=== PATIENT | male | born 1945 | race Caucasian/White ===

== ENCOUNTER 2017-08-12 12:10 | Emergency (ER) | payer MEDICARE, BC ==
--- NOTE | 2017-08-12 12:34 | EDM.PDOC ---
ED HPI GENERAL MEDICAL PROBLEM - General Chief Complaint: General Stated Complaint: fell and hit head Time Seen by Provider: 08/12/17 12:15 Source of Information: Reports: Patient History Limitations: Reports: No Limitations - History of Present Illness INITIAL COMMENTS - FREE TEXT/NARRATIVE: Pt was walking this morning and slipped on the ice and fell backwords and hit his head. Does have a hematoma on posterior scalp that is tender and states that "everything hurts" Doesn't remember falling. Happened about 0930 this AM. No loss of bowel or bladder. Very talkative while here. Does state that he will get dizzy when he turns over on the bed. Was nauseated initially but that is better. Onset: Sudden Onset Time: 09:30 Location: Reports: Head Quality: Reports: Dull Head Pain Score (Numeric/FACES): 4 - Related Data Allergies Allergy/AdvReac Type Severity Reaction Status Date / Time Penicillins Allergy Change Verified 08/12/17 12:16 Mental Status Home Meds: Home Meds Cholecalciferol (Vitamin D3) [Vitamin D] 2,000 units PO DAILY 10/10/14 [History] Colestipol [Colestipol HCl] 1 gm PO BID 10/10/14 [History] Gabapentin [Gabapentin] 600 mg PO TID 10/10/14 [History] L Acidophil/B Lactis/B Longum [Florajen3] 460 mg PO DAILY 10/10/14 [History] Methylcellulose [Citrucel] 500 mg PO QID 10/10/14 [History] Warfarin [Coumadin] 2.5 mg PO SUMOTUWETHSA 10/10/14 [History] Warfarin [Coumadin] 5 mg PO FR 10/10/14 [History] Omeprazole Magnesium [Prilosec Otc] 30 mg PO DAILY 06/05/16 [History] Vortioxetine Hydrobromide [Trintellix] 5 mg PO DAILY 06/05/16 [History] Cyclobenzaprine [Flexeril] 10 mg PO BEDTIME 07/19/16 [History] Past Medical History HEENT History: Reports: Hard of Hearing, Impaired Vision Respiratory History: Reports: PE Gastrointestinal History: Reports: GERD Other Genitourinary History: prostate removed Musculoskeletal History: Reports: Fibromyalgia Psychiatric History: Reports: Anxiety, Depression Oncologic (Cancer) History: Reports: Prostate - Past Surgical History HEENT Surgical History: Reports: Cataract Surgery, Tonsillectomy GI Surgical History: Reports: Appendectomy, Cholecystectomy Male Surgical History: Reports: Prostatectomy Musculoskeletal Surgical History: Reports: Other (See Below) Other Musculoskeletal Surgeries/Procedures:: PLATED TO IS JOINT IN HIP AND MARCOS TO LUMBAR SPINE Social & Family History - Family History Family Medical History: Noncontributory - Tobacco Use Smoking Status *Q: Never Smoker Second Hand Smoke Exposure: No - Alcohol Use Days Per Week of Alcohol Use: 0 - Recreational Drug Use Recreational Drug Use: No ED ROS GENERAL - Review of Systems Review Of Systems: See Below Constitutional: Reports: No Symptoms HEENT: Denies: Ear Discharge, Ear Pain, Vision Change Respiratory: Denies: Shortness of Breath Cardiovascular: Reports: No Symptoms GI/Abdominal: Denies: Abdominal Pain Musculoskeletal: Reports: Back Pain Skin: Reports: No Symptoms Neurological: Reports: Dizziness, Headache. Denies: Numbness ED EXAM, GENERAL - Physical Exam Exam: See Below Exam Limited By: No Limitations General Appearance: Alert, WD/WN, Mild Distress Ears: Normal External Exam, Normal Canal, Normal TMs Throat/Mouth: Normal Inspection, Normal Oropharynx, Normal Voice Head: Normocephalic, Other (small hematoma to the posterior scalp. Not open or draining.) Neck: Normal Inspection, Supple, Non-Tender Respiratory/Chest: No Respiratory Distress, Lungs Clear, Normal Breath Sounds Cardiovascular: Regular Rate, Rhythm GI/Abdominal: Normal Bowel Sounds, Soft, Non-Tender Back Exam: Normal Inspection Extremities: Normal Inspection, No Pedal Edema, Normal Capillary Refill Neurological: Alert, Oriented Skin Exam: Warm, Dry, Intact, Normal Color Course - Vital Signs Last Recorded V/S: Last Vital Signs Temp 97.2 F 08/12/17 12:26 Pulse 76 08/12/17 12:26 Resp 18 08/12/17 12:26 BP 142/95 H 08/12/17 13:04 Pulse Ox 96 08/12/17 12:26 - Orders/Labs/Meds Orders: Active Orders 24 hr Category Date Time Status Head wo Cont [CT] Stat Exams 08/12/17 12:28 Taken Meds: Medications Discontinued Medications Generic Name Dose Route Start Last Admin Trade Name Freq PRN Reason Stop Dose Admin Lisinopril 10 mg 08/12/17 13:10 08/12/17 13:22 Prinivil PO 08/12/17 13:11 10 mg ONETIME ONE Administration Tramadol HCl 50 mg 08/12/17 13:17 08/12/17 13:22 Ultram PO 08/12/17 13:18 50 mg ONETIME ONE Administration - Re-Assessments/Exams Free Text/Narrative Re-Assessment/Exam: 08/12/17 13:19 in to discuss the CT report that is negative for any bleeds. BP is still high. Will treat. Tramadol for headache ordered. Discussed getting up and moving around to see if the dizziness gets better. Free Text/Narrative Re-Assessment/Exam: 08/12/17 14:57 Feels better with headache less, Hematoma is smaller. Has been up and moving some with less dizziness. Tramadol 50 mg 1 every 6 hours as needed for pain. REst the rest of the day. Follow up with Dr. Stephens as needed. Departure - Departure Time of Disposition: 14:00 Disposition: Home, Self-Care 01 Clinical Impression: Anticoagulant long-term use Fall due to ice or snow Qualifiers: Encounter type: initial encounter Qualified Code(s): W00.9XXA - Unspecified fall due to ice and snow, initial encounter CHI (closed head injury) Qualifiers: Encounter type: initial encounter Qualified Code(s): S09.90XA - Unspecified injury of head, initial encounter - Discharge Information Referrals: Morris Stephens MD [Primary Care Provider] - Forms: ED Department Discharge - Problem List & Annotations (1) Anticoagulant long-term use SNOMED Code(s): 473927620 Code(s): Z79.01 - CLOTH COLORS EXAMINER (CURRENT) USE OF ANTICOAGULANTS Status: Chronic Priority: Medium (2) CHI (closed head injury) SNOMED Code(s): 891040278211 Code(s): S09.90XA - UNSPECIFIED INJURY OF HEAD, INITIAL ENCOUNTER Status: Acute Priority: High Qualifiers: Encounter type: initial encounter Qualified Code(s): S09.90XA - Unspecified injury of head, initial encounter (3) Fall due to ice or snow SNOMED Code(s): 742121747 Code(s): W00.9XXA - UNSPECIFIED FALL DUE TO ICE AND SNOW, INITIAL ENCOUNTER Status: Acute Priority: High Qualifiers: Encounter type: initial encounter Qualified Code(s): W00.9XXA - Unspecified fall due to ice and snow, initial encounter - Problem List Review Problem List Initiated/Reviewed/Updated: Yes - My Orders Last 24 Hours: My Active Orders 08/12/17 12:28 Head wo Cont [CT] Stat - Assessment/Plan Last 24 Hours: My Active Orders 08/12/17 12:28 Head wo Cont [CT] Stat
[2017-08-12 13:06] VITALS: BP 142/95
[2017-08-12] MEDS ORDERED: Lisinopril 10 MG Tab PO ONE (13:10)
[2017-08-12] MEDS ORDERED: traMADol 50 MG Tab PO ONE (13:17)
== END 2017-08-12 15:17 | disposition home or self-care (01) ==
LOC: CC.ED 12:10
DX: S09.90XA Unspecified injury of head, initial encounter (principal); W00.0XXA Fall on same level due to ice and snow, initial encounter; Z88.1 Allergy status to other antibiotic agents; Z79.899 Other long term (current) drug therapy; Z79.01 Long term (current) use of anticoagulants
CPT/HCPCS: 70450; 99284; A9270

== ENCOUNTER 2017-08-31 04:10 | Emergency (ER) | payer MEDICARE, BC ==
[2017-08-31 04:50] LABS: CHLORIDE,CL 107 mEq/L (98-106); SODIUM,NA 143 mEq/L (136-145)
--- NOTE | 2017-08-31 04:54 | EDM.PDOC ---
ED HPI GENERAL MEDICAL PROBLEM - General Chief Complaint: General Stated Complaint: dizzy Time Seen by Provider: 08/31/17 04:34 Source of Information: Reports: Patient History Limitations: Reports: No Limitations - History of Present Illness INITIAL COMMENTS - FREE TEXT/NARRATIVE: This patient is a 71 year old male that presents to the ER. Patient is accompanied by his . He is anxious. Patient reports that a few weeks ago he fell and hit his head. Patient reports that he was examined since a couple of times. Patient reports that since falling a few weeks ago, he has been diagnosed with HTN and Vertigo. He reports having dizziness since his fall a few weeks ago. Patient reports tonight that at about 10pm he was laying in bed and had a frontal headache across the forehead. He reports he had pain in his left ear. He describes the pain in his left ear as shapr and pulsating. He reports that he also had worse dizziness worse tonight especially with sitting up or position changes. But, felt like his dizziness was still there even with laying back, which normally it resolves in that position. The patient reports that since then he also feels generally weak, but more so on the left side of his body. He reports that he had abdominal pain and tenderness all over yesterday, but this has improved. He reports he also has some nausea. The denies v, d, f, congestion, cough, sinus pain, sinus pressure, cp, soa, urinary/ bowel changes, rashes. Patient is alert and oriented, stroke score is 0. GCS is 15. Patient was able to ambulate in the ER to the bathroom without difficulty or assistance. Onset Date: 08/30/17 Onset Time: 22:00 Location: Reports: Head Quality: Reports: Other (swishing) Severity: Moderate Improves with: Reports: Rest Worsens with: Reports: Movement Associated Symptoms: Reports: Headaches, Nausea/Vomiting, Weakness. Denies: Confusion, Chest Pain, Cough, cough w sputum, Diaphoresis, Fever/Chills, Loss of Appetite, Malaise, Rash, Seizure, Shortness of Breath, Syncope - Related Data Allergies Allergy/AdvReac Type Severity Reaction Status Date / Time Penicillins Allergy Change Verified 08/31/17 04:27 Mental Status Home Meds: Home Meds Cholecalciferol (Vitamin D3) [Vitamin D] 2,000 units PO DAILY 10/10/14 [History] Colestipol [Colestipol HCl] 1 gm PO BID 10/10/14 [History] Gabapentin [Gabapentin] 600 mg PO TID 10/10/14 [History] L Acidophil/B Lactis/B Longum [Florajen3] 460 mg PO DAILY 10/10/14 [History] Methylcellulose [Citrucel] 500 mg PO QID 10/10/14 [History] Warfarin [Coumadin] 2.5 mg PO SUMOTUWETHSA 10/10/14 [History] Warfarin [Coumadin] 5 mg PO FR 10/10/14 [History] Omeprazole Magnesium [Prilosec Otc] 30 mg PO DAILY 06/05/16 [History] Vortioxetine Hydrobromide [Trintellix] 5 mg PO DAILY 06/05/16 [History] Cyclobenzaprine [Flexeril] 10 mg PO BEDTIME 07/19/16 [History] Metoprolol Succinate [Toprol Xl] 50 mg PO DAILY 08/31/17 [History] Past Medical History HEENT History: Reports: Hard of Hearing, Impaired Vision Respiratory History: Reports: PE Gastrointestinal History: Reports: GERD Other Genitourinary History: prostate removed Musculoskeletal History: Reports: Fibromyalgia Psychiatric History: Reports: Anxiety, Depression Oncologic (Cancer) History: Reports: Prostate - Past Surgical History HEENT Surgical History: Reports: Cataract Surgery, Tonsillectomy GI Surgical History: Reports: Appendectomy, Cholecystectomy Male Surgical History: Reports: Prostatectomy Musculoskeletal Surgical History: Reports: Other (See Below) Other Musculoskeletal Surgeries/Procedures:: PLATED TO IS JOINT IN HIP AND MARCOS TO LUMBAR SPINE Social & Family History - Family History Family Medical History: Noncontributory - Tobacco Use Smoking Status *Q: Never Smoker Second Hand Smoke Exposure: No - Alcohol Use Days Per Week of Alcohol Use: 0 - Recreational Drug Use Recreational Drug Use: No ED ROS GENERAL - Review of Systems Review Of Systems: See Below Constitutional: Reports: Weakness HEENT: Reports: Ear Pain (left with [place]) Respiratory: Reports: No Symptoms Cardiovascular: Reports: No Symptoms Endocrine: Reports: No Symptoms GI/Abdominal: Reports: Abdominal Pain, Nausea. Denies: Diarrhea, Vomiting : Reports: No Symptoms Musculoskeletal: Reports: No Symptoms Skin: Reports: No Symptoms Neurological: Reports: Dizziness, Headache, Weakness (generalized, left more than right.). Denies: Syncope, Tremors, Trouble Speaking, Difficulty Walking, Change in Speech Psychiatric: Reports: No Symptoms Hematologic/Lymphatic: Reports: No Symptoms Immunologic: Reports: No Symptoms ED EXAM, GENERAL - Physical Exam Exam: See Below Exam Limited By: No Limitations General Appearance: Alert, WD/WN, No Apparent Distress Eye Exam: Bilateral Eye: EOMI, Normal Inspection, PERRL Ears: Normal External Exam, Normal Canal, Hearing Grossly Normal, Normal TMs, Other (right hearing aid removed for exam. ) Ear Exam: Bilateral Ear: Auricle Normal, Canal Normal, TM normal Nose: Normal Inspection, Normal Mucosa, No Blood Throat/Mouth: Normal Inspection, Normal Lips, Normal Teeth, Normal Gums, Normal Oropharynx, Normal Voice, No Airway Compromise Head: Atraumatic, Normocephalic Neck: Normal Inspection, Supple, Non-Tender, Full Range of Motion Respiratory/Chest: No Respiratory Distress, Lungs Clear, Normal Breath Sounds, No Accessory Muscle Use, Chest Non-Tender Cardiovascular: Normal Peripheral Pulses, Regular Rate, Rhythm, No Edema, No Gallop, No JVD, No Murmur, No Rub Peripheral Pulses: 2+: Carotid (L), Carotid (R), Radial (L), Radial (R), Posterior Tibial (L), Posterior Tibial (R), Dorsalis Pedis (L), Dorsalis Pedis ( R) GI/Abdominal: Normal Bowel Sounds, Soft, Non-Tender, No Organomegaly, No Distention, No Abnormal Bruit, No Mass, Pelvis Stable Back Exam: Normal Inspection, Full Range of Motion. No: CVA Tenderness (L), CVA Tenderness (R) Extremities: Normal Inspection, Normal Range of Motion, Non-Tender, No Pedal Edema, Normal Capillary Refill Neurological: Alert, Oriented, CN II-XII Intact, Normal Cognition, Normal Gait, No Motor/Sensory Deficits. No: Inattentive, Confused, Disoriented, Slow to Respond, Unresponsive, Memory Loss Remote Events, Memory Loss Recent Events, Abnormal Gait, Sensory/Motor Deficit Psychiatric: Normal Mood, Anxious Skin Exam: Warm, Dry, Intact, Normal Color, No Rash Lymphatic: No Adenopathy EKG INTERPRETATION EKG Date: 08/31/17 Time: 04:56 Rhythm: NSR Rate (Beats/Min): 64 [place]: Normal P-Wave: Present QRS: Normal ST-T: Normal QT: Normal Comparison: NA - No Prior EKG Course - Vital Signs Last Recorded V/S: Last Vital Signs Temp 98.5 F 08/31/17 04:40 Pulse 68 08/31/17 05:36 Resp 18 08/31/17 04:40 BP 124/86 08/31/17 05:36 Pulse Ox 97 08/31/17 04:40 Orthostatic Blood Pressure [ 154/87 Standing] Orthostatic Blood Pressure [ 121/71 Sitting] Orthostatic Blood Pressure [ 128/83 Supine] - Orders/Labs/Meds Orders: Active Orders 24 hr Category Date Time Status EKG Documentation Completion [RC] STAT Care 08/31/17 04:43 Inactive Orthostatic Vital Signs [RC] ASDIRECTED Care 08/31/17 05:03 Active Chest 1V Frontal [CR] Stat Exams 08/31/17 04:42 Taken Head wo Cont [CT] Stat Exams 08/31/17 04:36 Taken Labs: Laboratory Tests 08/31/17 08/31/17 08/31/17 Range/Units 04:30 04:30 04:30 WBC 7.2 (5.0-10.0) 10^3/uL RBC 5.01 (4.50-6.00) 10^6/uL Hgb 15.7 (14.0-18.0) g/dL Hct 47.0 (40.0-54.0) % MCV 93.8 (82.0-94.0) fL MCH 31.3 (27.0-32.0) pg MCHC 33.4 (33.0-38.0) g/dL RDW Coeff of Lucia 12.8 (11.0-15.0) % Plt Count 280 (150-400) 10^3/uL Neut % (Auto) 64.4 (35-85) % Lymph % (Auto) 18.6 (10-55) % [place] % (Auto) 11.9 (0-16) % Eos % (Auto) 4.3 (0-5) % Baso % (Auto) 0.8 (0-3) % Neut # (Auto) 4.63 (1.80-7.00) 10^3/uL Lymph # (Auto) 1.34 (1.00-4.80) 10^3/uL [place] # (Auto) 0.86 H (0.00-0.80) 10^3/uL Eos # (Auto) 0.31 (0.00-0.45) 10^3/uL Baso # (Auto) 0.06 10^3/uL PT 27.5 H (9.7-12.3) SEC INR 2.48 H (0.92-1.18) APTT 37.7 H (24.5-30.9) SEC Sodium 143 (136-145) mEq/L Potassium 3.6 (3.5-5.0) mEq/L Chloride 107 H (98-106) mEq/L Carbon Dioxide 28 (21-32) mmol/L BUN 13 (7-18) mg/dL Creatinine 0.8 (0.7-1.3) mg/dL Est Cr Clr Drug Dosing 91.51 mL/min Estimated GFR (MDRD) > 60 (>=60) mL/min Glucose 106 H (75-99) mg/dL Calcium 8.6 (8.4-10.1) mg/dL Creatine Kinase 80 (35-232) U/L Troponin I < 0.017 (0.00-0.06) ng/mL Urine Color (YELLOW) Urine Appearance (CLEAR) Urine pH (4.5-8.0) Ur Specific [place] (1.003-1.020) Urine Protein (NEGATIVE) mg/dL Urine Glucose (UA) (NEGATIVE) mg/dL Urine Ketones (NEGATIVE) mg/dL Urine Occult Blood (NEGATIVE) Urine Nitrite (NEGATIVE) Urine Bilirubin (NEGATIVE) Urine Urobilinogen (0.2-1.0) EU/dL Ur Leukocyte Esterase (NEGATIVE) Urine RBC (0-5) /HPF Urine WBC (0-5) /HPF Ur Epithelial Cells (NOT SEEN) /HPF Urine Mucus (NOT SEEN) /HPF 08/31/17 Range/Units 04:35 WBC (5.0-10.0) 10^3/uL RBC (4.50-6.00) 10^6/uL Hgb (14.0-18.0) g/dL Hct (40.0-54.0) % MCV (82.0-94.0) fL MCH (27.0-32.0) pg MCHC (33.0-38.0) g/dL RDW Coeff of [place] (11.0-15.0) % Plt Count (150-400) 10^3/uL Neut % (Auto) (35-85) % Lymph % (Auto) (10-55) % [place] % (Auto) (0-16) % Eos % (Auto) (0-5) % Baso % (Auto) (0-3) % Neut # (Auto) (1.80-7.00) 10^3/uL Lymph # (Auto) (1.00-4.80) 10^3/uL [place] # (Auto) (0.00-0.80) 10^3/uL Eos # (Auto) (0.00-0.45) 10^3/uL Baso # (Auto) 10^3/uL PT (9.7-12.3) SEC INR (0.92-1.18) APTT (24.5-30.9) SEC Sodium (136-145) mEq/L Potassium (3.5-5.0) mEq/L Chloride (98-106) mEq/L Carbon Dioxide (21-32) mmol/L BUN (7-18) mg/dL Creatinine (0.7-1.3) mg/dL Est Cr Clr Drug Dosing mL/min Estimated GFR (MDRD) (>=60) mL/min Glucose (75-99) mg/dL Calcium (8.4-10.1) mg/dL Creatine Kinase (35-232) U/L Troponin I (0.00-0.06) ng/mL Urine Color Yellow (YELLOW) Urine Appearance Clear (CLEAR) Urine pH 5.5 (4.5-8.0) Ur Specific [place] 1.025 H (1.003-1.020) Urine Protein Negative (NEGATIVE) mg/dL Urine Glucose (UA) Negative (NEGATIVE) mg/dL Urine Ketones Negative (NEGATIVE) mg/dL Urine Occult Blood Negative (NEGATIVE) Urine Nitrite Negative (NEGATIVE) Urine Bilirubin Negative (NEGATIVE) Urine Urobilinogen 0.2 (0.2-1.0) EU/dL Ur Leukocyte Esterase Negative (NEGATIVE) Urine RBC Not seen (0-5) /HPF Urine WBC Not seen (0-5) /HPF Ur Epithelial Cells Occasional H (NOT SEEN) /HPF Urine Mucus Moderate H (NOT SEEN) /HPF Meds: Medications Discontinued Medications Generic Name Dose Route Start Last Admin Trade Name Rehana PRN Reason Stop Dose Admin Diazepam 5 mg 08/31/17 05:05 08/31/17 05:27 Valium IVPUSH 08/31/17 05:06 5 mg ONETIME ONE Administration - Radiology Interpretation Free Text/Narrative:: Head CT: Discussed with radiologist; no acute findings. CT Results Date: 08/31/17 CT Results Time: 05:10 - Re-Assessments/Exams Free Text/Narrative Re-Assessment/Exam: 08/31/17 05:46 Patient reports that after the Valium IV, his ringing, throbbing, sharp pain in the left ear has resolved. He reports he does not feel as dizzy. Patient report the swishing is still present in the left ear, but improved. Departure - Departure Time of Disposition: 05:48 Disposition: Home, Self-Care 01 Condition: Fair Clinical Impression: Tinnitus Qualifiers: Laterality: left Qualified Code(s): H93.12 - Tinnitus, left ear - Discharge Information Instructions: Tinnitus Referrals: Morris Stephens MD [Primary Care Provider] - Forms: ED Department Discharge Additional Instructions: Followup with your primary care provider Return to the ER for worsening of condition or any emergent concerns Increase fluids Go home and rest, no sudden movements Valium 5mg 1 pill three times a day as needed for ringing in the er or dizziness #30 no refill; (this medicine may make you off balance, fall, or confused, if this occurs stop taking and consult with your primary care provider ) - My Orders Last 24 Hours: My Active Orders 08/31/17 04:36 Head wo Cont [CT] Stat 08/31/17 04:42 Chest 1V Frontal [CR] Stat 08/31/17 04:43 EKG Documentation Completion [RC] STAT 08/31/17 05:03 Orthostatic Vital Signs [RC] ASDIRECTED - Assessment/Plan Last 24 Hours: My Active Orders 08/31/17 04:36 Head wo Cont [CT] Stat 08/31/17 04:42 Chest 1V Frontal [CR] Stat 08/31/17 04:43 EKG Documentation Completion [RC] STAT 08/31/17 05:03 Orthostatic Vital Signs [RC] ASDIRECTED Plan: PLEASE SEE RN NOTE FOR PFSH.
[2017-08-31 05:36] VITALS: BP 124/86
== END 2017-08-31 06:05 | disposition home or self-care (01) ==
LOC: CC.ED 04:10
DX: H93.12 Tinnitus, left ear (principal); K21.9 Gastro-esophageal reflux disease without esophagitis; F32.9 Major depressive disorder, single episode, unspecified; Z79.01 Long term (current) use of anticoagulants; Z79.899 Other long term (current) drug therapy; Z88.0 Allergy status to penicillin
CPT/HCPCS: 36415; 70450; 71010; 80048; 81001; 82550; 84484; 85025; 85610; 85730; 93005; 96374; 99284; J3360; 93010

== ENCOUNTER 2019-04-17 16:42 | Emergency (ER) | payer MEDICARE, BC ==
[2019-04-17] MEDS ORDERED: Acetaminophen/oxyCODONE 325-5 MG Tab PO ONE (16:43)
[2019-04-17 16:47] VITALS: BP 125/90; PULSE 81
[2019-04-17] MEDS ORDERED: Ketorolac 30 MG/ML SDV IM ONE (17:22)
--- NOTE | 2019-04-17 17:29 | EDM.PDOC ---
ED HPI GENERAL MEDICAL PROBLEM - General Chief Complaint: Lower Extremity Injury/Pain Stated Complaint: foot pain Time Seen by Provider: 04/17/19 17:14 Source of Information: Reports: Patient History Limitations: Reports: No Limitations - History of Present Illness INITIAL COMMENTS - FREE TEXT/NARRATIVE: Patient presents to ER with complaints of left great toe and foot pain. States has had significant sharp pains over the last 4 hours. Has had surgery on this foot x2, last one took out 2 inches of nerve. History of gout. Neither issue has caused this much pain before. Currently on gabapentin 600 mg TID. Took his dose at 3 pm and it hasn't helped. Also took 2 old Ben [employer]olt that he had at home and they didn't make a difference either. States pain hurts down to the bottom of his foot either. Has sharp twinges of pain. Hasn't noted any redness or swelling to his foot. Does have a history of neuropathy but it has never hurt like this. No fevers. No trauma to foot. Onset: Today, Sudden Duration: Hour(s): Location: Reports: Lower Extremity, Left Quality: Reports: Sharp, Stabbing Severity: Severe Improves with: Reports: None Associated Symptoms: Reports: No Other Symptoms Treatments [employer]: Reports: Other (see below) Other Treatments [employer]: hydrocodone Left Feet Pain Score (Numeric/FACES): 9 - Related Data Allergies Allergy/AdvReac Type Severity Reaction Status Date / Time Penicillins Allergy Change Verified 04/17/19 16:48 Mental Status Home Meds: Home Meds Cholecalciferol (Vitamin D3) [Vitamin D] 2,000 units PO DAILY 10/10/14 [History] Gabapentin 600 mg PO TID 10/10/14 [History] L Acidophil/B Lactis/B Longum [Florajen3] 460 mg PO DAILY 10/10/14 [History] Warfarin [Coumadin] 2.5 mg PO DAILY 10/10/14 [History] Omeprazole Magnesium [Prilosec Otc] 30 mg PO DAILY 06/05/16 [History] Metoprolol Succinate [Toprol Xl] 50 mg PO DAILY 08/31/17 [History] Amitriptyline [Elavil] 50 mg PO DAILY 04/17/19 [History] Temazepam 1 cap PO ASDIRECTED PRN 04/17/19 [History] Past Medical History HEENT History: Reports: Hard of Hearing, Impaired Vision Cardiovascular History: Reports: Blood Clots/VTE/DVT, Hypertension Respiratory History: Reports: PE, Sleep Apnea, SOB Gastrointestinal History: Reports: GERD Other Genitourinary History: prostate removed Musculoskeletal History: Reports: Back Pain, Chronic, Fibromyalgia Neurological History: Reports: Concussion, Neuropathy, Peripheral Psychiatric History: Reports: Anxiety, Depression Oncologic (Cancer) History: Reports: Prostate - Past Surgical History HEENT Surgical History: Reports: Cataract Surgery, Tonsillectomy Cardiovascular Surgical History: Reports: None Respiratory Surgical History: Reports: None GI Surgical History: Reports: Appendectomy, Cholecystectomy, Colonoscopy Male Surgical History: Reports: Prostatectomy Musculoskeletal Surgical History: Reports: Other (See Below) Other Musculoskeletal Surgeries/Procedures:: PLATED TO IS JOINT IN HIP AND MARCOS TO LUMBAR SPINE. has had bone shaved from top of left foot; bone spur removed and nerve removal as well Social & Family History - Family History Family Medical History: Noncontributory - Tobacco Use Smoking Status *Q: Never Smoker Review of Systems - Review of Systems Review Of Systems: See Below Constitutional: Denies: Chills, Diaphoresis, Fever, Weakness Eyes: Reports: No Symptoms Ears: Reports: No Symptoms Nose: Reports: No Symptoms Mouth/Throat: Reports: No Symptoms Respiratory: Reports: No Symptoms Cardiovascular: Reports: No Symptoms GI/Abdominal: Reports: No Symptoms Musculoskeletal: Reports: Foot Pain. Denies: Joint Swelling Skin: Denies: Erythema, Wound Neurological: Reports: Numbness (toes on left foot, 2-5) Psychiatric: Reports: No Symptoms ED EXAM, GENERAL - Physical Exam Exam: See Below Exam Limited By: No Limitations General Appearance: Alert, WD/WN, Mild Distress Peripheral Pulses: 2+: Dorsalis Pedis (L), Dorsalis Pedis (R) Extremities: Normal Inspection, Normal Range of Motion, No Pedal Edema, Other ( tender with palpation). No: Limited Range of Motion, Increased Warmth, Pallor, Redness Neurological: Alert, Oriented Skin Exam: Warm, Dry. No: Erythema Course - Vital Signs Last Recorded V/S: Last Vital Signs Temp 98.1 F 04/17/19 16:42 Pulse 81 04/17/19 16:42 Resp 16 04/17/19 16:42 BP 125/90 04/17/19 16:42 Pulse Ox 92 L 04/17/19 16:42 - Orders/Labs/Meds Orders: Active Orders 24 hr Category Date Time Status C-REACTIVE PROTEIN [CHEM] Stat Lab 04/17/19 17:20 Received CBC WITH AUTO DIFF [HEME] Stat Lab 04/17/19 17:20 Received URIC ACID [CHEM] Stat Lab 04/17/19 17:20 Received - Re-Assessments/Exams Free Text/Narrative Re-Assessment/Exam: 04/17/19 17:35 Labs are normal 04/17/19 17:54 Patient not getting any relief from the Toradol shot. Fentanyl ordered. discussed that this is likely nerve pain and the best treatment would be to increase his gabapentin. He states if he takes more than his usual dose, he gets very sleepy and occasionally dizzy. Will send home with oxycodone as well. Will need to follow up with Dr. Phelps or Dr. Stephens tomorrow Departure - Departure Time of Disposition: 17:56 Disposition: Home, Self-Care 01 Condition: Fair Clinical Impression: Foot pain, left - Discharge Information *PRESCRIPTION DRUG MONITORING PROGRAM REVIEWED*: No *COPY OF PRESCRIPTION DRUG MONITORING REPORT IN PATIENT AVILA: No Referrals: Morris Stephens MD [Primary Care Provider] - Additional Instructions: 1. Rest 2. Increase gabapentin to four times a day for the next 2 days 3. Percocet 1 tab every 6 hours as needed for pain 4. Follow up with surgeon or Dr. Stephens tomorrow for further recommendation. - My Orders Last 24 Hours: My Active Orders 04/17/19 17:20 C-REACTIVE PROTEIN [CHEM] Stat CBC WITH AUTO DIFF [HEME] Stat URIC ACID [CHEM] Stat - Assessment/Plan Last 24 Hours: My Active Orders 04/17/19 17:20 C-REACTIVE PROTEIN [CHEM] Stat CBC WITH AUTO DIFF [HEME] Stat URIC ACID [CHEM] Stat
[2019-04-17] MEDS ORDERED: fentaNYL 100 MCG/2 ML SDV IM ONE (17:53)
[2019-04-17] MEDS ORDERED: Take Home: Acetaminophen/oxyCODONE 325-5 MG, 2 Tab Pack PO ONE (17:54)
== END 2019-04-17 18:10 | disposition home or self-care (01) ==
LOC: CC.ED 16:42
DX: M25.572 Pain in left ankle and joints of left foot (principal); I10 Essential (primary) hypertension; K21.9 Gastro-esophageal reflux disease without esophagitis; F41.9 Anxiety disorder, unspecified; F32.9 Major depressive disorder, single episode, unspecified; Z79.899 Other long term (current) drug therapy
CPT/HCPCS: 36415; 84550; 85025; 86140; 96372; 99283; A9270; J1885; J3010